=== PATIENT | male | born 1995 | race Caucasian/White ===

== ENCOUNTER 2017-12-04 01:11 | Emergency (ER) | payer BC ==
[~2017-12-04] VITALS: Ht 177.8 cm; Wt 113.6 kg
[2017-12-04 01:19] VITALS: TEMP 97.5
[2017-12-04 06:17] VITALS: BP 123/92; PULSE 86
== END 2017-12-04 06:19 | disposition home or self-care (01) ==
LOC: COL.ER 01:11
DX: F10.129 Alcohol abuse with intoxication, unspecified (principal); Y90.7 Blood alcohol level of 200-239 mg/100 ml
CPT/HCPCS: J2765; J7030